=== PATIENT | female | born 1980 | race Caucasian/White ===

== ENCOUNTER 2018-02-28 13:13 | Emergency (ER) | payer SELFPAY ==
[2018-02-28 14:12] LABS: #Eosinphils 0.1 thou/uL (0.0-0.7); #Lymphocytes 1.5 thou/uL (1.20-3.40); #Monocytes 0.5 thou/uL (0.11-0.59); #Neutrophils 3.9 thou/uL (1.40-6.50); %Basophils 0.7 % (0.0-1.0); %Eosinophils 1.7 % (0.0-10.0); %Lymphocytes 25.4 % (21.0-51.0); %Monocytes 8.3 % (0.0-10.0); %Neutrophils 63.9 % (42.0-75.0); Hemoglobin 11.6 g/dL (12.0-16.0); Mean Corpuscular HGB CONC 32.3 g/dL (32.0-36.0); Mean Corpuscular Hemoglobin 27.6 pg (27.0-31.0); Mean Corpuscular Volume 85.5 fL (78.0-98.0); Mean Platelet Volume 9.3 fL (7.4-10.4); Platelet Count 278 thou/uL (130-400); RBC Distribution Width 15.7 % (11.5-14.5); Red Blood Cell (RBC) Count 4.19 mill/uL (4.20-5.40); White Blood Cell (WBC) Count 6.1 thou/uL (4.8-10.8)
[2018-02-28 14:18] LABS: INR-International Normal Ratio 0.9; Prothrombin Time 12.7 SEC (12.0-14.7)
[2018-02-28 14:19] LABS: PTT 23.7 SEC (22.9-36.1)
[2018-02-28 14:24] LABS: BHCG - Serum Negative (NEGATIVE); Pregs Control Background? CLEAR/WHITE (CLR/WHITE); Pregs Control Bar Appear? YES (CONTROL BAR)
[2018-02-28 14:28] LABS: ALT (SGPT) 15 U/L (8-55); AST (SGOT) 14 U/L (5-34); Albumin 4.1 g/dL (3.5-5.0); Alkaline Phosphatase 87 U/L (40-150); Anion Gap 12 mmol/L (10-20); BUN (Urea Nitrogen) 13 mg/dL (7.0-18.7); Bilirubin, Total 0.4 mg/dL (0.2-1.2); Calc. Creatinine Clearance 0 mL/min (70-130); Carbon Dioxide 24 mmol/L (22-29); Chloride 107 mmol/L (98-107); Estimated GFR-MDRD Greater than 90; Globulin 3.3 g/dL (2.4-3.5); Glucose 93 mg/dL (70-105); Potassium 3.9 mmol/L (3.5-5.1); Protein, Total 7.4 g/dL (6.0-8.3); Sodium 139 mmol/L (136-145)
== END 2018-02-28 14:49 | disposition home or self-care (01) ==
LOC: ERS 13:13
DX: N93.9 Abnormal uterine and vaginal bleeding, unspecified (principal); D64.9 Anemia, unspecified; F32.9 Major depressive disorder, single episode, unspecified; Z79.899 Other long term (current) drug therapy
CPT/HCPCS: 80053; 84703; 85025; 85610; 85730; 99284

== ENCOUNTER 2019-05-19 13:37 | Emergency (ER) | payer SELFPAY ==
[~2019-05-19 13:37] MED LIST: Iopamidol 370 76% 100 ML VIAL ONE
[2019-05-19] MEDS ORDERED: Ondansetron PF 4 MG/2 ML Vial ONE (14:19)
[2019-05-19] MEDS ORDERED: Morphine 4 MG/ML VIAL ONE (14:19)
[2019-05-19 14:29] LABS: #Basophils 0.1 thou/uL (0.0-0.2); #Eosinphils 0.1 thou/uL (0.0-0.7); #Lymphocytes 1.2 thou/uL (1.20-3.40); #Monocytes 0.7 thou/uL (0.11-0.59); %Basophils 0.8 % (0.0-1.0); %Lymphocytes 16.6 % (21.0-51.0); %Monocytes 10.6 % (0.0-10.0); Hemoglobin 12.4 g/dL (12.0-16.0); Mean Corpuscular HGB CONC 32.1 g/dL (32.0-36.0); Mean Corpuscular Hemoglobin 30.3 pg (27.0-31.0); Mean Corpuscular Volume 94.3 fL (78.0-98.0); Platelet Count 267 thou/uL (130-400); RBC Distribution Width 14.3 % (11.5-14.5); Red Blood Cell (RBC) Count 4.09 mill/uL (4.20-5.40)
[2019-05-19 14:41] LABS: ALT (SGPT) 16 U/L (8-55); AST (SGOT) 16 U/L (5-34); Albumin 4.1 g/dL (3.5-5.0); Alkaline Phosphatase 71 U/L (40-110); Anion Gap 13 mmol/L (10-20); BUN (Urea Nitrogen) 8 mg/dL (7.0-18.7); Bilirubin, Total 0.5 mg/dL (0.2-1.2); Calc. Creatinine Clearance 0 mL/min (70-130); Calcium 9.1 mg/dL (7.8-10.44); Carbon Dioxide 25 mmol/L (22-29); Chloride 104 mmol/L (98-107); Estimated GFR-MDRD 89; Globulin 2.9 g/dL (2.4-3.5); Glucose 95 mg/dL (70-105); Sodium 138 mmol/L (136-145)
[2019-05-19 15:10] LABS: Bilirubin Negative (Negative); Blood, Urine Trace (Negative); Clarity Turbid (Clear); Glucose, Urine (Dipstick) Normal (Negative); Leukocyte 500 Leu/uL (Negative); Mucous/LPF 1+ LPF (<2+); Nitrite Negative (Negative); Protein, Urine (Dipstick) 10 mg/dL (Neg-Trace); WBC/HPF Greater than 50 HPF (0-3)
[2019-05-19 15:12] LABS: Pregnancy Test - Urine (BHCG) Negative (Negative); Pregu Control Background? CLEAR/WHITE (CLR/WHITE); Pregu Control Bar Appear? YES (CONTROL BAR); Specific Gravity 1.014 (1.002-1.036)
[2019-05-19 15:23] LABS: Bacteria/HPF 3+ HPF (None Seen)
--- NOTE | 2019-05-19 15:40 | CT ---
EXAM: CT ABDOMEN AND PELVIS HISTORY: Left lower quadrant pain, starting yesterday. COMPARISON: None. Procedure: Multiple contiguous axial images were obtained and a CT of the abdomen and pelvis with IV contrast. C oronal reformats were performed. FINDINGS: Lower Chest: within normal limits. Vessels: Normal caliber aorta Heart: Normal heart size. No significant pericardial fluid Abdomen: Portal vein:Patent Gallbladder: No calcified gallstones. Normal caliber wall. Liver: within normal limits. Pancreas: within normal limits. Spleen: within normal limits. Adrenals: within normal limits. Kidneys: Symmetric enhancement. No obstructive uropathy. Subcentimeter hypodensity in the right renal cortex is too small to characterize but is statistically favored to be a cyst. Peritoneum: No ascites or free air, no fluid collection. Bowel: Limited evaluation due to the lack of oral contrast administration. No evidence of bowel obstr uction. Ileocecal junction is unremarkable. Normal caliber appendix. Scattered fecal material in a nondistended, nondilated colon. Diverticulosis involving the descending colon and sigmoid colon. No e vidence of diverticulitis. Mesentery and Retroperitoneum: No enlarged mesenteric or retroperitoneal lymph nodes. Abdominal Wall: within normal limits. Pelvis: Reproductive Organs: Mixed attenuation of the uterus. Hyperdense focus may represent a uterine leiomy stefany, measuring 2.0 x 1.9 cm. Possible nabothian cyst. Bilateral adnexa are unremarkable. Pelvis: No mass, lymphadenopathy, free air or free fluid. Bladder: within normal limits. Bones: No acute abnormality. Sacralization of the inferior most lumbar type vertebra. IMPRESSION: 1. No evidence of acute intraabdominal\pelvic abnormality. Line 2. Presumed chronic changes involving the uterus. Nonemergent pelvic ultrasound can be performed.
== END 2019-05-19 16:33 | disposition home or self-care (01) ==
LOC: ERS 13:37
DX: N30.00 Acute cystitis without hematuria (principal); F32.9 Major depressive disorder, single episode, unspecified; I10 Essential (primary) hypertension; F17.210 Nicotine dependence, cigarettes, uncomplicated; Z79.899 Other long term (current) drug therapy
CPT/HCPCS: 74177; 80053; 81003; 81015; 81025; 85025; 87077; 87086; 87186; 96361; 96374; 96375; J2270; J2405; Q9967

== ENCOUNTER 2020-04-27 11:41 | Emergency (ER) | payer SELFPAY ==
--- NOTE | 2020-04-27 13:28 | RAD ---
EXAM: XR Foot Lt 3 View STANDARD PROVIDED CLINICAL HISTORY: Pain FINDINGS: There is no evidence for fracture or other acute osseous abnormality. Alignment appears anatomic. Christie nt spaces appear preserved. Plantar and posterior calcaneal enthesophyte formation are noted. IMPRESSION: No evidence for an acute osseous abnormality. If there is persistent clinical concern, conservative m anagement and follow-up imaging advised.
[2020-04-27] MEDS ORDERED: Ketorolac Tromethamine 30 MG/ML VIAL ONE (13:33)
== END 2020-04-27 13:55 | disposition home or self-care (01) ==
LOC: ERS 11:41
DX: M79.672 Pain in left foot (principal); I10 Essential (primary) hypertension; F17.210 Nicotine dependence, cigarettes, uncomplicated
CPT/HCPCS: 96372; J1885